=== PATIENT | female | born 1985 | race Caucasian/White ===

== ENCOUNTER 2016-12-27 17:07 | Emergency (ER) | payer SELFPAY ==
[~2016-12-27] VITALS: Ht 154.9 cm; Wt 63.6 kg
[2016-12-27 17:46] LABS: HEMATOCRIT 34.2 % (37.0-47.0); HEMOGLOBIN 11.6 g/dl (12.0-16.0); IMMATURE GRANULOCYTES 0.6 % (0.0-1.0); MEAN CELL VOLUME 94.7 fL CALC (80.0-100.0); MEAN CORPUSCULAR HGB 32.1 pG CALC (26.0-32.0); MEAN CORPUSCULAR HGB CONC 33.9 g/L CALC (32.0-36.0); NEUT# 6.58 thou/uL (2.00-7.15); RED BLOOD COUNT 3.61 mill/uL (4.20-5.60); RED CELL DISTRI WIDTH 11.9 % (11.5-15.5)
[2016-12-27 17:47] LABS: URINE BILIRUBIN - DIPSTICK NEGATIVE (NEGATIVE); URINE BLOOD DIPSTICK NEGATIVE (NEGATIVE); URINE CLARITY CLEAR; URINE COLOR YELLOW; URINE GLUCOSE - DIPSTICK NEGATIVE (NEGATIVE); URINE KETONE TRACE mg/dL (NEGATIVE); URINE LEUK ESTERASE NEGATIVE (NEGATIVE); URINE NITRITE - DIPSTICK NEGATIVE (Negative); URINE PH 7.5 (4.5-8.0); URINE PROTEIN - DIPSTICK NEGATIVE (NEG-TRACE); URINE UROBILINOGEN - DIPSTICK 0.2 E.U./dL (0.2)
[2016-12-27 18:07] LABS: ALBUMIN 3.3 g/dL (3.2-5.0); ALKALINE PHOSPHATASE 52 u/l (38-126); ANION GAP 13 (6-22 (CALC)); BILIRUBIN, TOTAL 0.2 mg/dL (0.0-1.4); BUN 8 mg/dL (7-17); BUN/CREATININE RATIO 11 (12-20 (CALC)); CARBON DIOXIDE 23 mmol/l (22-30); CHLORIDE 104 mmol/l (95-108); CREATININE 0.7 mg/dL (0.5-1.0); GFR > 60 ML/MIN (>=60 (CALC)); GFR FOR AFR.AMER. > 60 ML/MIN (>=60 (CALC)); GLUCOSE 80 mg/dL (65-105); SGOT/AST 25 u/l (14-36); SGPT/ALT 32 u/l (9-52); SODIUM 137 mmol/l (137-146); TOTAL PROTEIN 6.4 g/dL (6.3-8.2)
[2016-12-27 18:20] LABS: BETA-HCG, QUANT(RESULT NUMBER) 8473 mIU/mL
[2016-12-27] MEDS ORDERED: PRENATAL MULTI1 CAP PO (18:50)
[2016-12-27 19:08] VITALS: BP 117/66
== END 2016-12-27 19:13 | disposition home or self-care (01) | DRG 998 ==
LOC: ED 17:07
PROVIDERS: Emergency Medicine
DX: O26.899 Other specified pregnancy related conditions, unspecified trimester (principal); R10.31 Right lower quadrant pain; O99.330 Smoking (tobacco) complicating pregnancy, unspecified trimester; F17.210 Nicotine dependence, cigarettes, uncomplicated

== ENCOUNTER 2017-04-23 12:30 | Inpatient (IN) | payer OTHER ==
[~2017-04-23] VITALS: Ht 157.5 cm; Wt 68.0 kg
[2017-04-23] VITALS (12 sets, daily range): BP systolic 103–132; BP diastolic 55–76
[~2017-04-23 12:30] MED LIST: PRENATAL MULTI1 CAP PO
[2017-04-23 13:23] LABS: URINE BLOOD DIPSTICK NEGATIVE (NEGATIVE); URINE COLOR YELLOW; URINE GLUCOSE - DIPSTICK NEGATIVE (NEGATIVE); URINE KETONE TRACE mg/dL (NEGATIVE); URINE NITRITE - DIPSTICK NEGATIVE (Negative); URINE PH 6.5 (4.5-8.0); URINE PROTEIN - DIPSTICK NEGATIVE (NEG-TRACE)
[2017-04-23 13:27] LABS: URINE BILIRUBIN - DIPSTICK SMALL (NEGATIVE)
[2017-04-23 13:28] LABS: BARBITURATES NEGATIVE (NEGATIVE); COCAINE NEGATIVE (NEGATIVE); METHADONE NEGATIVE (NEGATIVE); OXCYCODONE NEGATIVE (NEGATIVE); TETRAHYDROCANNABIONOL NEGATIVE (NEGATIVE); TRICYLIC ANTIDEPRESSANTS NEGATIVE (NEGATIVE); URINE CLARITY SLIGHT CLOUDY; URINE LEUK ESTERASE TRACE (NEGATIVE)
[2017-04-23 14:28] LABS: HEMOGLOBIN 12.6 g/dl (12.0-16.0); IMMATURE GRANULOCYTES 0.7 % (0.0-1.0); MEAN CELL VOLUME 94.6 fL CALC (80.0-100.0); MEAN CORPUSCULAR HGB 32.2 pG CALC (26.0-32.0); MEAN CORPUSCULAR HGB CONC 34.1 g/L CALC (32.0-36.0); NEUT# 13.22 thou/uL (2.00-7.15); RED BLOOD COUNT 3.91 mill/uL (4.20-5.60); RED CELL DISTRI WIDTH 12.2 % (11.5-15.5)
[2017-04-23 14:34] LABS: ALBUMIN 3.7 g/dL (3.2-5.0); ALKALINE PHOSPHATASE 149 u/l (38-126); ANION GAP 16 (6-22 (CALC)); BILIRUBIN, TOTAL 0.5 mg/dL (0.0-1.4); BUN 9 mg/dL (7-17); BUN/CREATININE RATIO 14 (12-20 (CALC)); CALCIUM 9.6 mg/dL (8.4-10.2); CARBON DIOXIDE 18 mmol/l (22-30); CHLORIDE 106 mmol/l (95-108); CREATININE 0.6 mg/dL (0.5-1.0); GFR > 60 ML/MIN (>=60 (CALC)); GFR FOR AFR.AMER. > 60 ML/MIN (>=60 (CALC)); GLUCOSE 92 mg/dL (65-105); POTASSIUM 4.5 mmol/l (3.5-5.1); SGOT/AST 23 u/l (14-36); SGPT/ALT 36 u/l (9-52); SODIUM 134 mmol/l (137-146); TOTAL PROTEIN 6.9 g/dL (6.3-8.2)
[2017-04-24 01:03] VITALS: BP 121/73
[2017-04-24 02:20] VITALS: BP 126/80
[2017-04-24 03:46] LABS: HEMATOCRIT 31.9 % (37.0-47.0); HEMOGLOBIN 10.9 g/dl (12.0-16.0); IMMATURE GRANULOCYTES 0.5 % (0.0-1.0); MEAN CELL VOLUME 95.5 fL CALC (80.0-100.0); MEAN CORPUSCULAR HGB 32.6 pG CALC (26.0-32.0); MEAN CORPUSCULAR HGB CONC 34.2 g/L CALC (32.0-36.0); NEUT# 11.48 thou/uL (2.00-7.15); RED BLOOD COUNT 3.34 mill/uL (4.20-5.60)
[2017-04-24 05:30] VITALS: BP 111/77
[2017-04-24 11:43] VITALS: BP 102/71
[2017-04-24 16:00] VITALS: BP 108/67
[2017-04-24 19:24] VITALS: BP 110/62
[2017-04-25 03:00] VITALS: BP 127/62
[2017-04-25 05:25] VITALS: BP 120/93
[2017-04-25] MEDS ORDERED: PERCOCET 5/325M1 TAB PO (09:11)
[2017-04-25] MEDS ORDERED: VISTARIL25 MG PO (09:13)
== END 2017-04-25 14:00 | disposition home or self-care (01) | DRG 766 ==
LOC: OBOP 12:30 → EDSTATUS 12:32 → OBOP 12:57 → OB 12:57 → OBOP 12:59 → OB 13:00
PROC: 10D00Z0 Extraction of Products of Conception, High, Open Approach (ICD-10-PCS; principal; 2017-04-23)
PROC: 0UB70ZZ Excision of Bilateral Fallopian Tubes, Open Approach (ICD-10-PCS; 2017-04-23)
DX: O42.02 Full-term premature rupture of membranes, onset of labor within 24 hours of rupture (principal); F17.210 Nicotine dependence, cigarettes, uncomplicated; O34.212 Maternal care for vertical scar from previous cesarean delivery; N85.8 Other specified noninflammatory disorders of uterus; O75.82 Onset (spontaneous) of labor after 37 completed weeks of gestation but before 39 completed weeks gestation, with delivery by (planned) cesarean section; O99.334 Smoking (tobacco) complicating childbirth; Z3A.38 38 weeks gestation of pregnancy; Z37.0 Single live birth; Z88.8 Allergy status to other drugs, medicaments and biological substances

== ENCOUNTER 2017-05-12 21:37 | Inpatient (IN) | payer OTHER ==
[~2017-05-12] VITALS: Ht 157.5 cm; Wt 50.0 kg
[~2017-05-12 21:37] MED LIST changes: +PERCOCET 5/325M1 TAB PO; +VISTARIL25 MG PO
[2017-05-12 22:40] LABS: HEMATOCRIT 38.6 % (37.0-47.0); HEMOGLOBIN 12.8 g/dl (12.0-16.0); IMMATURE GRANULOCYTES 0.4 % (0.0-1.0); MEAN CELL VOLUME 95.5 fL CALC (80.0-100.0); MEAN CORPUSCULAR HGB 31.7 pG CALC (26.0-32.0); MEAN CORPUSCULAR HGB CONC 33.2 g/L CALC (32.0-36.0); NEUT# 4.39 thou/uL (2.00-7.15); RED BLOOD COUNT 4.04 mill/uL (4.20-5.60); RED CELL DISTRI WIDTH 11.8 % (11.5-15.5)
[2017-05-12 22:58] LABS: PROTHROMBIN TIME 10.4 SECONDS (9.0-12.5)
[2017-05-12 23:01] LABS: ALBUMIN 4.7 g/dL (3.2-5.0); ALKALINE PHOSPHATASE 195 u/l (38-126); ANION GAP 18 (6-22 (CALC)); BUN 14 mg/dL (7-17); BUN/CREATININE RATIO 13 (12-20 (CALC)); CALCIUM 10.1 mg/dL (8.4-10.2); CARBON DIOXIDE 22 mmol/l (22-30); CHLORIDE 108 mmol/l (95-108); ETHYL ALCOHOL 0 mg/dl (0-30); GFR > 60 ML/MIN (>=60 (CALC)); GFR FOR AFR.AMER. > 60 ML/MIN (>=60 (CALC)); GLUCOSE 88 mg/dL (65-105); POTASSIUM 4.1 mmol/l (3.5-5.1); SGOT/AST 33 u/l (14-36); SGPT/ALT 43 u/l (9-52); SODIUM 143 mmol/l (137-146); TOTAL PROTEIN 8.2 g/dL (6.3-8.2)
[2017-05-12 23:04] LABS: URINE BILIRUBIN - DIPSTICK NEGATIVE (NEGATIVE); URINE BLOOD DIPSTICK SMALL (NEGATIVE); URINE CLARITY CLEAR; URINE COLOR YELLOW; URINE GLUCOSE - DIPSTICK NEGATIVE (NEGATIVE); URINE KETONE TRACE mg/dL (NEGATIVE); URINE NITRITE - DIPSTICK NEGATIVE (Negative); URINE PH 5.5 (4.5-8.0); URINE PROTEIN - DIPSTICK 30 mg/dL (NEG-TRACE); URINE SPECIFIC GRAVITY >=1.030; URINE UROBILINOGEN - DIPSTICK 0.2 E.U./dL (0.2)
[2017-05-12 23:09] LABS: URINE LEUK ESTERASE SMALL (NEGATIVE)
[2017-05-12 23:16] LABS: URINE BACTERIA FEW hpf; URINE SQUAMOUS EPITHELIAL CELL FEW EPI/hpf (0-FEW); URINE TRICHOMONAS FEW hpf
[2017-05-12 23:17] LABS: COCAINE NEGATIVE (NEGATIVE); METHADONE NEGATIVE (NEGATIVE); TETRAHYDROCANNABIONOL POSITIVE (NEGATIVE); TRICYLIC ANTIDEPRESSANTS NEGATIVE (NEGATIVE)
[2017-05-12 23:18] LABS: BARBITURATES NEGATIVE (NEGATIVE); OXCYCODONE NEGATIVE (NEGATIVE)
[2017-05-13 09:00] VITALS: BP 114/78
[2017-05-13 17:00] VITALS: BP 107/75
[2017-05-13 19:15] VITALS: BP 107/43
[2017-05-14 07:35] VITALS: BP 100/60
[2017-05-14] MEDS ORDERED: SMZ-TMP DS1 TAB PO (08:58)
== END 2017-05-14 09:55 | disposition home or self-care (01) | DRG 776 ==
LOC: ED 21:37 → ED-I 05-13 01:20 → ED 05-13 02:18 → ICU 05-13 02:19
PROVIDERS: Emergency Medicine; ADMIT Internal Medicine; ATTEND Internal Medicine
DX: O99.325 Drug use complicating the puerperium (principal); O86.89 Other specified puerperal infections; O99.355 Diseases of the nervous system complicating the puerperium; G40.909 Epilepsy, unspecified, not intractable, without status epilepticus; A59.03 Trichomonal cystitis and urethritis; O99.335 Smoking (tobacco) complicating the puerperium; F15.129 Other stimulant abuse with intoxication, unspecified; F12.929 Cannabis use, unspecified with intoxication, unspecified; F13.129 Sedative, hypnotic or anxiolytic abuse with intoxication, unspecified
CPT/HCPCS: J2060

== ENCOUNTER 2020-01-22 15:05 | Emergency (ER) | payer SELFPAY ==
[~2020-01-22 15:05] MED LIST changes: +SMZ-TMP DS1 TAB PO
[2020-01-22] MEDS ORDERED: KEFLEX500 M1 PO (15:26)
[2020-01-22 15:27] VITALS: BP 118/66
== END 2020-01-22 15:32 | disposition home or self-care (01) | DRG 159 ==
LOC: ED 15:05
DX: K04.7 Periapical abscess without sinus (principal); F17.200 Nicotine dependence, unspecified, uncomplicated

== ENCOUNTER 2020-02-07 06:08 | Emergency (ER) | payer SELFPAY ==
[~2020-02-07 06:08] MED LIST changes: +KEFLEX500 M1 PO
[2020-02-07 06:14] VITALS: BP 118/64
[2020-02-07] MEDS ORDERED: VOLTAREN - GENE75 MG PO (06:38)
[2020-02-07] MEDS ORDERED: CLINDAMYCIN300 M1 PO (06:38)
[2020-02-07] MEDS ORDERED: ERYTHROMYCIN B500 MG PO (06:51)
== END 2020-02-07 06:57 | disposition home or self-care (01) | DRG 159 ==
LOC: ED 06:08
DX: K04.7 Periapical abscess without sinus (principal); K08.409 Partial loss of teeth, unspecified cause, unspecified class; F17.210 Nicotine dependence, cigarettes, uncomplicated

== ENCOUNTER 2022-09-26 13:32 | Emergency (ER) | payer SELFPAY ==
[~2022-09-26] VITALS: Ht 157.5 cm; Wt 75.0 kg
[~2022-09-26 13:32] MED LIST changes: +CLINDAMYCIN300 M1 PO; +ERYTHROMYCIN B500 MG PO; +VOLTAREN - GENE75 MG PO
[2022-09-26 14:15] VITALS: BP 120/80
== END 2022-09-26 15:45 | disposition home or self-care (01) | DRG 951 ==
LOC: ED 13:32
DX: Z03.823 Encounter for observation for suspected inserted (injected) foreign body ruled out (principal); N89.8 Other specified noninflammatory disorders of vagina; R10.2 Pelvic and perineal pain; F17.200 Nicotine dependence, unspecified, uncomplicated

== ENCOUNTER 2023-05-10 23:31 | Emergency (ER) | payer SELFPAY ==
[~2023-05-10] VITALS: Ht 157.5 cm; Wt 52.0 kg
[2023-05-11 00:05] VITALS: BP 120/83
== END 2023-05-11 00:05 | disposition left against medical advice (07) | DRG 605 ==
LOC: ED 23:31
DX: S41.112A Laceration without foreign body of left upper arm, initial encounter (principal); F31.9 Bipolar disorder, unspecified; F17.200 Nicotine dependence, unspecified, uncomplicated; X58.XXXA Exposure to other specified factors, initial encounter; Z53.29 Procedure and treatment not carried out because of patient's decision for other reasons